=== PATIENT | male | born 1955 | race Caucasian/White ===

== ENCOUNTER 2019-01-13 08:40 | Day surgery (SDC) | payer OTHER ==
[~2019-01-13] VITALS: Ht 182.9 cm; Wt 96.1 kg
[~2019-01-13 08:40] MED LIST: ASPI81TA85 PO; FLOM0.4C39 PO; LIPI20TA PO; METO1TAB32 PO; ZETI10TA16 PO
[2019-01-13] MEDS ORDERED: NS 1,000 ML IV ONE (09:00)
[2019-01-13] MEDS ORDERED: LIDOCAINE 2% INJ 100 MG/5 ML SDV (FOR ANES.) As Ordered ONE (09:40)
[2019-01-13] MEDS ORDERED: propofoL 200 MG/20 ML VIAL As Ordered ONE ×2 (09:40→09:52)
--- NOTE | 2019-01-13 10:01 | ROOR ---
Patient Name: Alton Tiwari Procedure Date: 01/13/2019 9:36 AM Date of : 1955 Age: 63 Room: [facility] [place] Gender: Male Note Status: Finalized Procedure: Colonoscopy Indications: Screening for colorectal malignant neoplasm Providers: Benito BRAMBILA MD Referring MD: AILEEN LOCKETT MD Requesting Provider: Medicines: Monitored Anesthesia Care Complications: No immediate complications. Procedure: Pre-Anesthesia Assessment: - The heart rate, respiratory rate, oxygen saturations, blood pressure, adequacy of pulmonary ventilation, and response to care were monitored throughout the procedure. The Colonoscope was introduced through the anus and advanced to the cecum, identified by appendiceal orifice and ileocecal valve. The colonoscopy was performed without difficulty. The patient tolerated the procedure well. The quality of the bowel preparation was good. Findings: The perianal and digital rectal examinations were normal. Mild sigmoid diverticulosis and small internal hemorrhoids. The entire colon appeared normal on direct and retroflexion views. Impression: - Mild sigmoid diverticulosis and small internal hemorrhoids. - The entire examined colon is otherwise normal on direct and retroflexion views. - No specimens collected. Recommendation: - Repeat colonoscopy in 10 years for screening purposes. Benito Brambila MD Benito BRAMBILA MD 01/13/2019 10:01:22 AM Electronically signed by Benito BRAMBILA MD Number of Addenda: 0 Note Initiated On: 01/13/2019 9:36 AM Estimated Blood Loss: Estimated blood loss: none.
[2019-01-13 10:20] VITALS: BP 129/75
== END 2019-01-13 10:34 | disposition home or self-care (01) ==
LOC: M OPP 08:40
PROVIDERS: ATTEND Internal Medicine Gastroenterology
DX: K57.30 Diverticulosis of large intestine without perforation or abscess without bleeding (principal); K64.8 Other hemorrhoids; Z12.11 Encounter for screening for malignant neoplasm of colon